=== PATIENT | male | born 1960 | race Caucasian/White ===

== ENCOUNTER → 2017-02-22 | Outpatient (CLI) | payer BC | LOC: SLEEP-COR 14:13 | DX: G47.10 Hypersomnia, unspecified (principal); G47.30 Sleep apnea, unspecified | CPT/HCPCS: 95811 ==

== ENCOUNTER → 2021-02-11 | Outpatient (CLI) | payer OTHER | LOC: RAD 10:42 | DX: M25.562 Pain in left knee (principal); Z87.828 Personal history of other (healed) physical injury and trauma; M17.12 Unilateral primary osteoarthritis, left knee | CPT/HCPCS: 73562 ==

== ENCOUNTER → 2021-05-15 | Outpatient (CLI) | payer BC, OTHER | LOC: KOH-I 08:44 | DX: M25.511 Pain in right shoulder (principal); M25.512 Pain in left shoulder; M75.21 Bicipital tendinitis, right shoulder; M19.012 Primary osteoarthritis, left shoulder; M19.011 Primary osteoarthritis, right shoulder | CPT/HCPCS: 73030 ==

== ENCOUNTER → 2021-06-05 | Outpatient (CLI) | payer BC, OTHER | LOC: KOH-I 13:37 | DX: M75.112 Incomplete rotator cuff tear or rupture of left shoulder, not specified as traumatic (principal); M75.111 Incomplete rotator cuff tear or rupture of right shoulder, not specified as traumatic; M19.012 Primary osteoarthritis, left shoulder; M65.812 Other synovitis and tenosynovitis, left shoulder | CPT/HCPCS: 73221 ==